=== PATIENT | female | born 1985 | race American Indian/Alaskan Native ===

== ENCOUNTER 2019-12-18 12:54 | Emergency (ER) | payer MEDICAID ==
[2019-12-18 13:03] VITALS: BP 142/80
--- NOTE | 2019-12-18 13:49 | Emergency Department Report ---
Chief Complaint: Earache Stated Complaint: LFT EAR PAIN Time Seen by Provider: 12/18/19 13:30 - HPI History of Present Illness: 34-year-old obese -[place] female presents to the emergency room for left ear pain and reports she thinks she has a rash from her blood transfusion. Patient also complains of a bump on the opening of her nose. - Exam Vital Signs: Vital Signs 12/18/19 12:57 Temperature 98 F Pulse Rate 99 H Respiratory 18 Rate Blood Pressure 142/80 O2 Sat by Pulse 100 Oximetry Physical Exam: Patient is alert and oriented x3 morbid obese no acute distress Left ear tragus tenderness pinna tenderness mild discharge from the external canal, nares pin size bump that is nonerythematous nonedematous no discharge appreciated non-crusty no excoriation MSE screening note: Focused history and physical exam performed. Due to findings the following was ordered: 34-year-old obese -[place] female presents to the emergency room for left ear pain and reports she thinks she has a rash from her blood transfusion. Patient also complains of a bump on the opening of her nose. Discussed the patient I will treat her for a left otitis externa. Discussed the patient that the bump on her nose does not require any antibiotics orally. Patient became irate and states that she is going to leave and going to [place]. Patient refuses treatment for her otitis externa. ED Disposition for MSE Disposition: Z-07 ELOPED Is pt being admited?: No Does the pt Need Aspirin: No Condition: Stable
== END 2019-12-18 13:42 | disposition left against medical advice (07) ==
LOC: ED 12:54
DX: H60.8X1 Other otitis externa, right ear (principal)
CPT/HCPCS: 99281

== ENCOUNTER 2019-12-23 15:02 | Emergency (ER) | payer MEDICAID, MEDICARE ==
--- NOTE | 2019-12-23 16:03 | Emergency Department Report ---
ED Abdominal Pain HPI - General Chief Complaint: Abdominal Pain Stated Complaint: LOWER ABD PAIN Time Seen by Provider: 12/23/19 16:00 Source: patient Mode of arrival: Ambulatory Limitations: No Limitations - History of Present Illness Initial Comments: 34-year-old obese female presents to the emergency room for lower abdominal pain x5 days. Patient denies any dysuria but reports that her urine is dark. Patient reports she still having some light vaginal bleeding from her period. Patient denies any vaginal discharge. Patient reports that her last menstrual period started on 12/06/2019 and ended on 12/15/2019. Patient states she is been taken extra strength Tylenol for her pain. Patient reports she has a past medical history of pulmonary embolism and DVTs and seizure disorder. Last seizure was Thursday of [facility]. Patient states that she is on Trileptal 900 mg twice daily, Eliquis 5 mg twice daily Provera 20 mg p.o. twice daily and Keppra 1500 mg p.o. twice daily. Patient reports that she is followed by [facility]. She has no known drug allergies. Patient was recently seen here last week for a left ear pain and left upset and not treated. Patient states that she was eventually seen by a provider and was told that she had a cyst in her outer ear canal. MD Complaint: abdominal pain Onset/Timin -: days(s) Location: suprapubic Radiation: none Severity scale (0 -10): 8 Quality: stabbing, aching Consistency: constant Improves With: nothing Worsens With: nothing Associated Symptoms: denies other symptoms - Related Data Home Medications Medication Instructions Recorded Confirmed Last Taken Apixaban [Eliquis] 5 mg PO DAILY 12/18/19 12/18/19 Unknown levETIRAcetam [Keppra TAB] 1,500 mg PO BID 12/18/19 12/18/19 Unknown medroxyPROGESTERone ACETATE 10 mg PO DAILY 12/18/19 12/18/19 Unknown [Provera] Previous Rx's Medication Instructions Recorded Last Taken Type traMADoL [Ultram 50 MG tab] 50 mg PO Q6HR PRN #12 tablet 12/23/19 Unknown Rx Allergies Allergy/AdvReac Type Severity Reaction Status Date / Time No Known Allergies Allergy Unverified 12/18/19 13:03 ED Review of Systems ROS: Stated complaint: LOWER ABD PAIN Other details as noted in HPI ED Past Medical Hx - Past Medical History Previous Medical History?: Yes Hx Deep Vein Thrombosis: Yes Hx Seizures: Yes Additional medical history: fibroids - Surgical History Past Surgical History?: Yes Additional Surgical History: fibroids, blood transfusions - Social History Smoking Status: Never Smoker Substance Use Type: None - Medications Home Medications: Home Medications Medication Instructions Recorded Confirmed Last Taken Type Apixaban [Eliquis] 5 mg PO DAILY 12/18/19 12/18/19 Unknown History levETIRAcetam [Keppra TAB] 1,500 mg PO BID 12/18/19 12/18/19 Unknown History medroxyPROGESTERone ACETATE 10 mg PO DAILY 12/18/19 12/18/19 Unknown History [Provera] traMADoL [Ultram 50 MG tab] 50 mg PO Q6HR PRN #12 tablet 12/23/19 Unknown Rx ED Physical Exam - General Limitations: No Limitations ED Course Vital Signs 12/23/19 15:10 Temperature 98.4 F Pulse Rate 101 H Respiratory 18 Rate Blood Pressure 137/72 [Right] O2 Sat by Pulse 99 Oximetry ED Medical Decision Making - Radiology Data Radiology results: report reviewed Print Report Referring Physician:JACQUELINE BUITRAGOPatient Name:DELIA MORRISPatient ID:[id number] of :[id number]:Femal eAccession:[id number] Date:[id number] Status:Finalized Findings [facility] [address] [place] [address] Ultrasound Report Signed Patient: DELIA MORRIS MR# : [id number] : 1985 Acct:[id number] Age/Sex: 34 / F ADM Date: 12/23/19 Loc: ED Attending Dr: Ordering Physician: ROSALINA CORDOVA Date of Service: 12/23/19 Procedure(s): US transvaginal Accession Number(s): [id number] cc: ROSALINA CORDOVA ULTRASOUND PELVIS INDICATION: Pelvic pain. TECHNIQUE: Transvaginal. Duplex Color Doppler used: Yes. COMPARISON: Transabdominal ultrasound performed same time. FINDINGS: Uterus: Present. Heterogeneous. Size: 19.6 x 13.3 x 15.1 cm cm. Endometrial complex: Thickened measuring 15 mm containing IUD. Mass lesions: None. Additional findings: None. Right Ovary -- Normal. Blood flow: Normal. Cyst or mass: None. Left Ovary-- Normal. Blood flow: Normal. Cyst or mass: None. Urinary Bladder: Normal. Free Fluid: None. Additional Findings: None. IMPRESSION: 1. Enlarged heterogeneous uterus likely secondary to leiomyomatous appearance. No discrete fibroids measured or visualized. 2. Thickened endometrial stripe measuring 15 mm containing IUD Signer Name: Darion Slaughter MD Signed: 12/23/2019 6:47 PM Workstation Name: [id number] Transcribed By: TL Dictated By: Darion Slaughter MD Electronically Authenticated By: Darion Slaughter MD Signed Date/Time: 12/23/191846 DD/ 43 TD/TT: - Medical Decision Making 34-year-old obese female presents to the emergency room for lower abdominal pain x5 days. Patient denies any dysuria but reports that her urine is dark. Patient reports she still having some light vaginal bleeding from her period. Patient denies any vaginal discharge. Patient reports that her last menstrual period started on 12/06/2019 and ended on 12/15/2019. Patient states she is been taken extra strength Tylenol for her pain. Patient reports she has a past medical history of pulmonary embolism and DVTs and seizure disorder. Last seizure was Thursday of [facility]. Patient states that she is on Trileptal 900 mg twice daily, Eliquis 5 mg twice daily Provera 20 mg p.o. twice daily and Keppra 1500 mg p.o. twice daily. Patient reports that she is followed by [facility]. She has no known drug allergies. Patient was recently seen here last week for a left ear pain and left upset and not treated. Patient states that she was eventually seen by a provider and was told that she had a cyst in her outer ear canal. Ultrasound of pelvic shows the 1. Enlarged heterogeneous uterus likely secondary to leiomyomatous appearance. No discrete fibroids measured or visualized. 2. Thickened endometrial stripe measuring 15 mm containing IUD Urinalysis is negative blood work is stable. Recommend to take Tylenol extra strength 2 tablets p.o. every 6 hours as needed and to follow-up with the [facility]. Critical care attestation.: If time is entered above; I have spent that time in minutes in the direct care of this critically ill patient, excluding procedure time. ED Disposition Clinical Impression: Leiomyoma, Pelvic pain Disposition: TO HOME OR SELFCARE Is pt being admited?: No Does the pt Need Aspirin: No Condition: Stable Instructions: Abdominal Pain (ED) Additional Instructions: Recommend to take Tylenol extra strength 2 tabs every 6 hours as needed for pain and to follow-up with the [facility]. Urinalysis is negative for any infection, blood work is stable. Prescriptions: traMADoL [Ultram 50 MG tab] 50 mg PO Q6HR PRN #12 tablet PRN Reason: Pain Referrals: [facility]IMARY [facility] [Primary Care Provider] - 3-5 Days [facility] [Provider Group] - 3-5 Days [facility] [Provider Group] - 3-5 Days
[2019-12-23 16:18] LABS: Bilirubin,Urine NEG (Negative); Blood,Urine LG (Negative); Color,Urine Yellow (Yellow); Mucus,Urine FEW /HPF; Urobilinogen,Urine < 2.0 mg/dL (<2.0)
[2019-12-23 16:23] LABS: HCG Qualitative,Urine Negative (Negative)
[2019-12-23] MEDS ORDERED: traMADol 50 MG TAB PO ONE (16:46)
--- NOTE | 2019-12-23 18:44 | Ultrasound Report ---
ULTRASOUND PELVIS INDICATION: Pelvic pain. TECHNIQUE: Transabdominal and Transvaginal. Duplex Color Doppler used: No. COMPARISON: None available FINDINGS: Uterus: Present. Size: 19.6 x 13.3 x 15.1 cm. Endometrial complex: Contains IUD. measuring 15 mm. Mass lesions: Several ill-defined uterine leiomyomas, largest of which measures 8.6 cm Additional findings: None. Right Ovary -- Normal. Blood flow: Normal. Cyst or mass: None. Left Ovary-- Normal. Blood flow: Normal. Cyst or mass: 4.0 x 3.7 x 3.3 cm left ovarian cyst. Urinary Bladder: Normal. Free Fluid: None. Additional Findings: None. IMPRESSION: 1. Enlarged heterogeneous leiomyomatous 2. IUD with thickened endometrial stripe measuring 15 mm 3. 4.0 cm left ovarian locular cyst. Signer Name: Darion Slaughter MD Signed: 12/23/2019 6:40 PM Workstation Name: [id number]
--- NOTE | 2019-12-23 18:51 | Ultrasound Report ---
ULTRASOUND PELVIS INDICATION: Pelvic pain. TECHNIQUE: Transvaginal. Duplex Color Doppler used: Yes. COMPARISON: Transabdominal ultrasound performed same time. FINDINGS: Uterus: Present. Heterogeneous. Size: 19.6 x 13.3 x 15.1 cm cm. Endometrial complex: Thickened measuring 15 mm containing IUD. Mass lesions: None. Additional findings: None. Right Ovary -- Normal. Blood flow: Normal. Cyst or mass: None. Left Ovary-- Normal. Blood flow: Normal. Cyst or mass: None. Urinary Bladder: Normal. Free Fluid: None. Additional Findings: None. IMPRESSION: 1. Enlarged heterogeneous uterus likely secondary to leiomyomatous appearance. No discrete fibroids m easured or visualized. 2. Thickened endometrial stripe measuring 15 mm containing IUD Signer Name: Darion Slaughter MD Signed: 12/23/2019 6:47 PM Workstation Name: [id number]
[2019-12-23 19:42] VITALS: BP 141/82
== END 2019-12-23 19:25 | disposition home or self-care (01) ==
LOC: ED 15:02
DX: D21.9 Benign neoplasm of connective and other soft tissue, unspecified (principal); R10.2 Pelvic and perineal pain; Z79.899 Other long term (current) drug therapy; Z98.890 Other specified postprocedural states; Z86.69 Personal history of other diseases of the nervous system and sense organs
CPT/HCPCS: 76830; 76856; 81001; 81025

== ENCOUNTER 2020-05-30 01:50 | Emergency (ER) | payer MEDICARE ==
[2020-05-30 04:08] LABS: Alanine Aminotransferase 62 units/L (7-56); Albumin 3.9 g/dL (3.9-5); Blood Urea Nitrogen 12 mg/dL (7-17); Calcium 8.8 mg/dL (8.4-10.2); Hemolysis Index 5
[2020-05-30 04:10] LABS: BUN/Creatinine Ratio 20
[2020-05-30 04:13] LABS: Basophils # (Auto) 0.1 K/mm3 (0.0-0.1); Basophils % (Auto) 0.4 % (0.0-1.8); Eosinophils % (Auto) 0.1 % (0.0-4.3); Hematocrit 39.1 % (30.3-42.9); Hemoglobin 12.7 gm/dl (10.1-14.3); Lymphocytes # (Auto) 1.1 K/mm3 (1.2-5.4); Lymphocytes % (Auto) 7.5 % (13.4-35.0); Mean Corpuscular HGB Conc 33 % (30-34); Mean Corpuscular Volume 87 fl (79-97); Monocytes # (Auto) 0.5 K/mm3 (0.0-0.8); Monocytes % (Auto) 3.3 % (0.0-7.3); Platelet Count 295 K/mm3 (140-440); Red Blood Count 4.48 M/mm3 (3.65-5.03); Red Cell Distribution Width 16.3 % (13.2-15.2)
[2020-05-30 06:09] LABS: Bilirubin,Urine NEG (Negative); Blood,Urine LG (Negative); Color,Urine Red (Yellow); Mucus,Urine 1+ /HPF; Sperm,Urine 1+ /HPF (NP); Urobilinogen,Urine < 2.0 mg/dL (<2.0)
[2020-05-30 06:16] LABS: RBC,Urine > 182.0 /HPF (0.0-6.0)
[2020-05-30] MEDS ORDERED: MORPHINE 4 MG/1 ML INJ IV ONE (08:35)
[2020-05-30] MEDS ORDERED: SODIUM CHLORIDE 0.9% 1000 ML 1,000 ML IV ONE (08:35)
[2020-05-30] MEDS ORDERED: ONDANSETRON 4 MG/2 ML INJ IV ONE (08:35)
[2020-05-30] MEDS ORDERED: cefTRIAXone/NS 1 GM/50 ML 1 GM/50 ML BAG IV ONE (08:35)
[2020-05-30] MEDS ORDERED: POTASSIUM CHLORIDE ER 20 MEQ TAB PO ONE (09:06)
--- NOTE | 2020-05-30 09:26 | Emergency Department Report ---
ED Abdominal Pain HPI - General Chief Complaint: Abdominal Pain Stated Complaint: ABD PAINS / SEIZURE Time Seen by Provider: 05/30/20 08:24 Source: patient Mode of arrival: Ambulatory Limitations: No Limitations - History of Present Illness Initial Comments: This is a 35-year-old female nontoxic, well nourished in appearance, no acute signs of distress presents to the ED with c/o of nausea and vomiting and abdominal pain several days. Patient describes vomiting as food content and yellow gastric acid. Patient describes abdominal pain as cramping and aching with level of 8/10 diffuse. Denies any vaginal discharge. Patient denies chest pain, short of breath, fever, hemoptysis, blood in stool, chills, headache, stiff neck, numbness or tingling. Patient denies any diarrhea or constipation. Denies any blood in stool. Patient denies any recent travels. Patient denies any allergies. MD Complaint: abdominal pain -: days(s) Location: diffuse Radiation: none Migration to: no migration Severity: mild Severity scale (0 -10): 8 Quality: cramping, aching Consistency: constant Improves With: nothing Worsens With: nothing Associated Symptoms: nausea, vomiting. denies: diarrhea, fever, chills, constipation, dysuria, hematemesis, hematochezia, melena, hematuria, anorexia, syncope - Related Data Home Medications Medication Instructions Recorded Confirmed Last Taken Apixaban [Eliquis] 5 mg PO DAILY 12/18/19 05/10/20 Unknown medroxyPROGESTERone ACETATE 10 mg PO DAILY 12/18/19 05/10/20 Unknown [Provera] OXcarbazepine 1,350 mg PO DAILY 05/10/20 05/10/20 Unknown Previous Rx's Medication Instructions Recorded Last Taken Type traMADoL [Ultram 50 MG tab] 50 mg PO Q6HR PRN #12 tablet 12/23/19 Unknown Rx Ibuprofen [Motrin 800 MG tab] 800 mg PO Q8HR PRN #20 tablet 01/30/20 Unknown Rx medroxyPROGESTERone ACETATE 10 mg PO QDAY #10 tablet 01/31/20 Unknown Rx [Provera] traMADoL [Ultram 50 MG tab] 50 mg PO Q6HR PRN #14 tablet 03/24/20 Unknown Rx Butalb/Acetamin/Caff 50-325-40 1 - 2 tab PO Q8HR PRN #10 tablet 05/10/20 Unknown Rx [Fioricet 50-325-40] OXcarbazepine [Trileptal] 600 mg PO BID #30 tablet 05/10/20 Unknown Rx levETIRAcetam [Keppra TAB] 1,500 mg PO BID #90 05/10/20 Unknown Rx Ondansetron [Zofran Odt] 4 mg PO Q8HR PRN #12 tab.rapdis 05/30/20 Unknown Rx cephALEXin [Keflex] 500 mg PO Q8HR #21 cap 05/30/20 Unknown Rx Allergies Allergy/AdvReac Type Severity Reaction Status Date / Time No Known Allergies Allergy Verified 01/30/20 19:26 ED Review of Systems ROS: Stated complaint: ABD PAINS / SEIZURE Other details as noted in HPI Constitutional: denies: chills, fever Eyes: denies: eye pain, eye discharge, vision change ENT: denies: ear pain, throat pain Respiratory: denies: cough, shortness of breath, wheezing Cardiovascular: denies: chest pain, palpitations Endocrine: no symptoms reported Gastrointestinal: abdominal pain, nausea, vomiting. denies: diarrhea, cons tipation, hematemesis, melena, hematochezia Genitourinary: denies: urgency, dysuria, discharge Musculoskeletal: denies: back pain, joint swelling, arthralgia Skin: denies: rash, lesions Neurological: denies: headache, weakness, paresthesias Psychiatric: denies: anxiety, depression Hematological/Lymphatic: denies: easy bleeding, easy bruising ED Past Medical Hx - Past Medical History Previous Medical History?: Yes Hx Deep Vein Thrombosis: Yes Hx Seizures: Yes Additional medical history: fibroids, PE, endometriosis. anemia - Surgical History Past Surgical History?: Yes Additional Surgical History: fibroids, blood transfusions - Social History Smoking Status: Never Smoker Substance Use Type: None - Medications Home Medications: Home Medications Medication Instructions Recorded Confirmed Last Taken Type Apixaban [Eliquis] 5 mg PO DAILY 12/18/19 05/10/20 Unknown History medroxyPROGESTERone ACETATE 10 mg PO DAILY 12/18/19 05/10/20 Unknown History [Provera] traMADoL [Ultram 50 MG tab] 50 mg PO Q6HR PRN #12 tablet 12/23/19 05/10/20 Unknown Rx Ibuprofen [Motrin 800 MG tab] 800 mg PO Q8HR PRN #20 tablet 01/30/20 05/10/20 Unknown Rx medroxyPROGESTERone ACETATE 10 mg PO QDAY #10 tablet 01/31/20 05/10/20 Unknown Rx [Provera] traMADoL [Ultram 50 MG tab] 50 mg PO Q6HR PRN #14 tablet 03/24/20 05/10/20 Unknown Rx Butalb/Acetamin/Caff 50-325-40 1 - 2 tab PO Q8HR PRN #10 tablet 05/10/20 Unknown Rx [Fioricet 50-325-40] OXcarbazepine 1,350 mg PO DAILY 05/10/20 05/10/20 Unknown History OXcarbazepine [Trileptal] 600 mg PO BID #30 tablet 05/10/20 Unknown Rx levETIRAcetam [Keppra TAB] 1,500 mg PO BID #90 05/10/20 Unknown Rx Ondansetron [Zofran Odt] 4 mg PO Q8HR PRN #12 tab.rapdis 05/30/20 Unknown Rx cephALEXin [Keflex] 500 mg PO Q8HR #21 cap 05/30/20 Unknown Rx ED Physical Exam - General Limitations: No Limitations General appearance: alert, in no apparent distress - Head Head exam: Present: atraumatic, normocephalic - Eye Eye exam: Present: normal appearance - Neck Neck exam: Present: normal inspection, full ROM. Absent: tenderness, meningismus, lymphadenopathy - Respiratory Respiratory exam: Present: normal lung sounds bilaterally. Absent: respiratory distress, wheezes, rales, rhonchi, stridor, chest wall tenderness, accessory muscle use, decreased breath sounds, prolonged expiratory - Cardiovascular Cardiovascular Exam: Present: regular rate, normal rhythm, normal heart sounds. Absent: irregular rhythm, systolic murmur, diastolic murmur, rubs, gallop - GI/Abdominal GI/Abdominal exam: Present: soft, tenderness (diffuse), normal bowel sounds. Absent: distended, guarding, rebound, rigid, diminished bowel sounds - Extremities Exam Extremities exam: Present: normal inspection, full ROM - Back Exam Back exam: Present: normal inspection, full ROM. Absent: tenderness, CVA tenderness (R), CVA tenderness (L), muscle spasm, paraspinal tenderness, rash n oted - Neurological Exam Neurological exam: Present: alert, oriented X3, normal gait - Psychiatric Psychiatric exam: Present: normal affect, normal mood - Skin Skin exam: Present: warm, dry, intact, normal color. Absent: rash ED Course Vital Signs 05/30/20 05/30/20 05/30/20 02:32 07:33 09:50 Temperature 97.6 F 98.0 F Pulse Rate 103 H 108 H Respiratory 18 18 18 Rate Blood Pressure 150/108 Blood Pressure 127/82 [Right] O2 Sat by Pulse 98 99 Oximetry - Reevaluation(s) Reevaluation #1: 05/30/20 09:26 Patient is speaking in full sentences with no signs of distress noted. ED Medical Decision Making - Lab Data Result diagrams: 05/30/20 02:49 05/30/20 02:49 Lab Results 05/30/20 05/30/20 05/30/20 Range/Units 02:49 02:49 02:49 WBC 14.7 H (4.5-11.0) K/mm3 RBC 4.48 (3.65-5.03) M/mm3 Hgb 12.7 (10.1-14.3) gm/dl Hct 39.1 (30.3-42.9) % MCV 87 (79-97) fl MCH 28 (28-32) pg MCHC 33 (30-34) % RDW 16.3 H (13.2-15.2) % Plt Count 295 (140-440) K/mm3 Lymph % (Auto) 7.5 L (13.4-35.0) % [place] % (Auto) 3.3 (0.0-7.3) % Eos % (Auto) 0.1 (0.0-4.3) % Baso % (Auto) 0.4 (0.0-1.8) % Lymph # (Auto) 1.1 L (1.2-5.4) K/mm3 [place] # (Auto) 0.5 (0.0-0.8) K/mm3 Eos # (Auto) 0.0 (0.0-0.4) K/mm3 Baso # (Auto) 0.1 (0.0-0.1) K/mm3 Seg Neutrophils % 88.7 H (40.0-70.0) % Seg Neutrophils # 13.0 H (1.8-7.7) K/mm3 Sodium 137 (137-145) mmol/L Potassium 3.4 L (3.6-5.0) mmol/L Chloride 101.5 (98-107) mmol/L Carbon Dioxide 20 L (22-30) mmol/L Anion Gap 19 mmol/L BUN 12 (7-17) mg/dL Creatinine 0.6 (0.6-1.2) mg/dL Estimated GFR > 60 ml/min BUN/Creatinine Ratio 20 % Glucose 111 H (65-100) mg/dL Calcium 8.8 (8.4-10.2) mg/dL Total Bilirubin 0.50 (0.1-1.2) mg/dL AST 55 H (5-40) units/L ALT 62 H (7-56) units/L Alkaline Phosphatase 111 (35-129) units/L Total Protein 7.9 (6.3-8.2) g/dL Albumin 3.9 (3.9-5) g/dL Albumin/Globulin Ratio 1.0 % Lipase 9 L (13-60) units/L HCG, Qual Negative (Negative) Urine Color (Yellow) Urine Turbidity (Clear) Urine pH (5.0-7.0) Ur Specific [place] (1.003-1.030) Urine Protein (Negative) mg/dL Urine Glucose (UA) (Negative) mg/dL Urine Ketones (Negative) mg/dL Urine Blood (Negative) Urine Nitrite (Negative) Urine Bilirubin (Negative) Urine Urobilinogen (<2.0) mg/dL Ur Leukocyte Esterase (Negative) Urine WBC (Auto) (0.0-6.0) /HPF Urine RBC (Auto) (0.0-6.0) /HPF U Epithel Cells (Auto) (0-13.0) /HPF Urine Mucus /HPF Urine Sperm (FORGE HEATER) /HPF 05/30/20 Range/Units Unknown WBC (4.5-11.0) K/mm3 RBC (3.65-5.03) M/mm3 Hgb (10.1-14.3) gm/dl Hct (30.3-42.9) % MCV (79-97) fl MCH (28-32) pg MCHC (30-34) % RDW (13.2-15.2) % Plt Count (140-440) K/mm3 Lymph % (Auto) (13.4-35.0) % [place] % (Auto) (0.0-7.3) % Eos % (Auto) (0.0-4.3) % Baso % (Auto) (0.0-1.8) % Lymph # (Auto) (1.2-5.4) K/mm3 [place] # (Auto) (0.0-0.8) K/mm3 Eos # (Auto) (0.0-0.4) K/mm3 Baso # (Auto) (0.0-0.1) K/mm3 Seg Neutrophils % (40.0-70.0) % Seg Neutrophils # (1.8-7.7) K/mm3 Sodium (137-145) mmol/L Potassium (3.6-5.0) mmol/L Chloride (98-107) mmol/L Carbon Dioxide (22-30) mmol/L Anion Gap mmol/L BUN (7-17) mg/dL Creatinine (0.6-1.2) mg/dL Estimated GFR ml/min BUN/Creatinine Ratio % Glucose (65-100) mg/dL Calcium (8.4-10.2) mg/dL Total Bilirubin (0.1-1.2) mg/dL AST (5-40) units/L ALT (7-56) units/L Alkaline Phosphatase (35-129) units/L Total Protein (6.3-8.2) g/dL Albumin (3.9-5) g/dL Albumin/Globulin Ratio % Lipase (13-60) units/L HCG, Qual (Negative) Urine Color Red (Yellow) Urine Turbidity Slightly-cloudy (Clear) Urine pH 5.0 (5.0-7.0) Ur Specific [place] 1.046 H (1.003-1.030) Urine Protein 100 mg/dl (Negative) mg/dL Urine Glucose (UA) Neg (Negative) mg/dL Urine Ketones Tr (Negative) mg/dL Urine Blood Lg (Negative) Urine Nitrite Neg (Negative) Urine Bilirubin Neg (Negative) Urine Urobilinogen < 2.0 (<2.0) mg/dL Ur Leukocyte Esterase Lg (Negative) Urine WBC (Auto) 156.0 H (0.0-6.0) /HPF Urine RBC (Auto) > 182.0 (0.0-6.0) /HPF U Epithel Cells (Auto) 1.0 (0-13.0) /HPF Urine Mucus 1+ /HPF Urine Sperm 1+ (FORGE HEATER) /HPF - Radiology Data Referring Physician: KAVITHA ECHAVARRIA Patient Name: DELIA MORRIS Date of : 1985 Sex: Female Report Date: 2020-05-30 Report Status: Finalized [facility] [address] [id number] Cat Scan Report Signed Patient: DELIA MORRIS MR# : [id number] : 1985 Acct:[id number] Age/Sex: 35 / F ADM Date: 05/30/20 Loc: ED Attending Dr: Ordering Physician: KAVITHA ECHAVARRIA NP Date of Service: 05/30/20 Procedure(s): CT abdomen pelvis w con Accession Number(s): [id number] cc: KAVITHA ECHAVARRIA NP CT abdomen pelvis w con INDICATION: abd pain w/ n/v. COMPARISON: ultr asound pelvis from January 29 and December 19 [id number] TECHNIQUE: Abdominal and pelvic CT exam performed. All CT scans at this location are performed using CT dose reduction for ALARA by means of automated exposure control. FINDINGS: CT ABDOMEN and PELVIS: Lung Bases: No significant abnormality. Liver: A couple of tiny subcentimeter hypoattenuating lesions which are too small to characterize but likely represent cysts. Biliary: The bladder is dilated. No stones, gallbladder wall thickening, or pericholecystic fluid. Spleen: No significant abnormality. Pancreas: No significant abnormality. Adrenals: No significant abnormality. Kidneys: No significant abnormality. Lymphatics: No lymphadenopat hy. Vasculature: No significant abnormality. Bowel/Peritoneum: No significant abnormality. Normal appendix. Pelvis: The uterus is significantly enlarged and heterogeneous measuring approximately 19 cm in craniocaudal dimension which is likely related to a fundal fibroid 1 seen on sagittal image 93 of series 602. Small quantity of fluid in the rectouterine pouch. Osseous Structures: No aggressive osseous lesion. Additional Findings: None IMPRESSION: 1. Similar to prior ultrasounds, the uterus is heterogeneous and significantly enlarged with a suspected large uterine fundal fibroid measuring approximately 19cm. Gynecological consultation is recommended. 2. No acute abnormality. Signer Name: Wes Olivares MD Signed: 05/30/2020 10:36 AM Workstation Name: [id number] Transcribed By: CS Dictated By: Wes Olivares MD Electronically Authenticated By: Wes Olivares MD Signed Date/Time: 05/30/20 1036 DD/ 1031 TD/TT: - Medical Decision Making This is a 35-year-old female that presents with uterine fibroid. Patient is stable and was examined by me. Negative signs of symptoms of appendicitis. Labs obtained. UA obtained. CT of abdomen obtained and dictated by the radiologist. Patient is notified of the report with no questions noted by the patient. Vital signs are stable prior to discharge. Patient received medical treatment in the ED which patient stated symptoms has resovled and subsided. Was instructed note to operate any machinery due to possible drowsiness and stated someone will drive the patient home. A by mouth challenge has been obtained and patient tolerated well with no nausea vomiting. Patient was also instructed to Follow- up with a primary care doctor in 3-5 days or if symptoms worsen and continue return to emergency room as soon as possible. At time of discharge, the patient does not seem toxic or ill in appearance. No acute signs of distress noted. Patient agrees to discharge treatment plan of care. No further questions noted by the patient. Critical care attestation.: If time is entered above; I have spent that time in minutes in the direct care of this critically ill patient, excluding procedure time. ED Disposition Clinical Impression: Abdominal pain Qualifiers: Abdominal location: generalized Qualified Code(s): R10.84 - Generalized abdominal pain Nausea & vomiting Qualifiers: Vomiting type: unspecified Vomiting Intractability: non-intractable Qualified Code(s): R11.2 - Nausea with vomiting, unspecified Uterine fibroid Qualifiers: Uterine leiomyoma location: unspecified location Qualified Code(s): D25.9 - Leiomyoma of uterus, unspecified UTI (urinary tract infection) Qualifiers: Urinary tract infection type: acute cystitis Hematuria presence: without hematuria Qualified Code(s): N30.00 - Acute cystitis without hematuria Disposition: - TO HOME OR SELFCARE Is pt being admited?: No Does the pt Need Aspirin: No Condition: Stable Instructions: Abdominal Pain (ED), Uterine Fibroids (ED), Urinary Tract Infection in Women (ED) Additional Instructions: Follow-up with a primary care and D[facility]AL EQUIPMENT TECHNICIAN doctor in 3-5 days or if symptoms wo rsen and continue return to emergency room as soon as possible. Prescriptions: cephALEXin [Keflex] 500 mg PO Q8HR #21 cap Ondansetron [Zofran Odt] 4 mg PO Q8HR PRN #12 tab.rapdis PRN Reason: Nausea Referrals: PRIMARY MD DANA [Primary Care Provider] - 3-5 Days CARL LOVELL MD [Staff Physician] - 3-5 Days [facility] [Provider Group] - 3-5 Days Forms: Work/School Release Form(ED)
--- NOTE | 2020-05-30 10:41 | Cat Scan Report ---
CT abdomen pelvis w con INDICATION: abd pain w/ n/v. COMPARISON: ultrasound pelvis from January 29 thousand 20 and December 18 4020 TECHNIQUE: Abdominal and pelvic CT exam performed. All CT scans at this location are performed using CT dose reduction for ALARA by means of automated exposure control. FINDINGS: CT ABDOMEN and PELVIS: Lung Bases: No significant abnormality. Liver: A couple of tiny subcentimeter hypoattenuating lesions which are too small to characterize but likely represent cysts. Biliary: The bladder is dilated. No stones, gallbladder wall thickening, or pericholecystic fluid. Spleen: No significant abnormality. Pancreas: No significant abnormality. Adrenals: No significant abnormality. Kidneys: No significant abnormality. Lymphatics: No lymphadenopathy. Vasculature: No significant abnormality. Bowel/Peritoneum: No significant abnormality. Normal appendix. Pelvis: The uterus is significantly enlarged and heterogeneous measuring approximately 19 cm in crani ocaudal dimension which is likely related to a fundal fibroid 1 seen on sagittal image 93 of series 6 02. Small quantity of fluid in the rectouterine pouch. Osseous Structures: No aggressive osseous lesion. Additional Findings: None IMPRESSION: 1. Similar to prior ultrasounds, the uterus is heterogeneous and significantly enlarged with a suspec irvin large uterine fundal fibroid measuring approximately 19cm. Gynecological consultation is recommen ded. 2. No acute abnormality. Signer Name: Wes Olivares MD Signed: 05/30/2020 10:36 AM Workstation Name: [id number]
[2020-05-30] MEDS ORDERED: KETOROLAC 30 MG/1 ML INJ IV ONE (12:43)
[2020-05-30 13:27] VITALS: BP 130/84
== END 2020-05-30 13:26 | disposition home or self-care (01) ==
LOC: ED 01:50
DX: D25.9 Leiomyoma of uterus, unspecified (principal); N39.0 Urinary tract infection, site not specified; R10.84 Generalized abdominal pain; R11.2 Nausea with vomiting, unspecified; R56.9 Unspecified convulsions; Z86.718 Personal history of other venous thrombosis and embolism; Z98.890 Other specified postprocedural states; Z79.1 Long term (current) use of non-steroidal anti-inflammatories (NSAID); Z79.899 Other long term (current) drug therapy
CPT/HCPCS: 36415; 74177; 80053; 81001; 83690; 84703; 85025; 96361; 96365; 96375; 99284; J0696; J1885; J2270; J2405; J7030; Q9967

== ENCOUNTER 2021-02-09 11:34 | Emergency (ER) | payer MEDICARE ==
[2021-02-09 13:03] VITALS: BP 129/75
[2021-02-09] MEDS ORDERED: oxyCODONE 5 MG TAB PO ONE (14:01)
--- NOTE | 2021-02-09 14:02 | Emergency Department Report ---
ED Lower Extremity HPI - General Chief Complaint: Extremity Injury, Lower Stated Complaint: RT KNEE Time Seen by Provider: 02/09/21 13:33 Source: patient, RN notes reviewed Mode of arrival: Ambulatory Limitations: No Limitations - History of Present Illness Initial Comments: The patient was evaluated in the emergency department for symptoms described in the history of present illness. He/she was evaluated in the context of the global COVID-19 pandemic, which necessitated consideration that the patient might be at risk for infection with the virus that causes COVID-19. Institutional protocols and algorithms that pertain to the evaluation of patients at risk for COVID-19 are in a state of rapid change based on information released by regulatory bodies including the CDC and federal and state organizations. These policies and algorithms were followed during the patient's care in the emergency department. Please note that these policies, procedures and recommendations changed on a rapid basis. During the entire history and physical examination, I am chaperoned by nurse Lia Thomas The patient is a 35-year-old female. She is not known to myself previously. She has a history of morbid obesity, with a body mass index of 55, pulmonary embolism, maintained on Eliquis, and seizure disorder, compliant with Keppra, and Trileptal. The patient presents to the ER today with a complaint of subacute traumatic right knee pain. Patient reports that she tripped and fell and hit her knee a few weeks ago. She has persistent sharp throbbing right-sided knee pain, which increases with palpation and decreases with rest. She cannot take Motrin or ibuprofen secondary to her being on systemic anticoagulation. She has been taki ng acetaminophen. She indicates that she has been limiting acetaminophen to less than 3 g per 24 hours. She currently denies headache, neck pain, chest pain, abdominal pain, shortness of breath, and the possibility of . She reports that she has not delivered or given within the past 6 weeks. She endorses compliance with her seizure medications. She does report on review systems that she had an absence seizure yesterday, which is typical for her, associated with a loss of perception of time, without headache, neck pain, chest pain, abdominal pain or shortness of breath. Patient reports that she does not drive or operate motor vehicles. The patient reports that she is following up as an outpatient at [facility] for her seizures. Patient patient reports that she gets "an event", a few times a month. However, her primary complaint is right-sided knee pain. She reports she is going to follow-up with an orthopedist in March. Complaint: knee injury -: week(s) Injury: Knee: Right Type of Injury: blunt Severity: mild Improves With: rest Worsens With: movement, palpation Context: fall, direct blow Associated Symptoms: swelling. denies: numbness, tingling Treatments Prior to Arrival: other (Acetaminophen) - Related Data Home Medications Medication Instructions Recorded Confirmed Last Taken Apixaban [Eliquis] 5 mg PO DAILY 12/18/19 05/10/20 Unknown medroxyPROGESTERone ACETATE 10 mg PO DAILY 12/18/19 05/10/20 Unknown [Provera] OXcarbazepine 1,350 mg PO DAILY 05/10/20 05/10/20 Unknown Previous Rx's Medication Instructions Recorded Last Taken Type traMADoL [Ultram 50 MG tab] 50 mg PO Q6HR PRN #12 tablet 12/23/19 Unknown Rx Ibuprofen [Motrin 800 MG tab] 800 mg PO Q8HR PRN #20 tablet 01/30/20 Unknown Rx medroxyPROGESTERone ACETATE 10 mg PO QDAY #10 tablet 01/31/20 Unknown Rx [Provera] traMADoL [Ultram 50 MG tab] 50 mg PO Q6HR PRN #14 tablet 03/24/20 Unknown Rx Butalb/Acetamin/Caff 50-325-40 1 - 2 tab PO Q8HR PRN #10 tablet 05/10/20 Unknown Rx [Fioricet 50-325-40] OXcarbazepine [Trileptal] 600 mg PO BID #30 tablet 05/10/20 Unknown Rx levETIRAcetam [Keppra TAB] 1,500 mg PO BID #90 05/10/20 Unknown Rx Ondansetron [Zofran Odt] 4 mg PO Q8HR PRN #12 tab.rapdis 05/30/20 Unknown Rx cephALEXin [Keflex] 500 mg PO Q8HR #21 cap 05/30/20 Unknown Rx Allergies Allergy/AdvReac Type Severity Reaction Status Date / Time No Known Allergies Allergy Verified 01/30/20 19:26 ED Review of Systems ROS: Stated complaint: RT KNEE Other details as noted in HPI Constitutional: denies: fever Eyes: denies: vision change ENT: denies: epistaxis Respiratory: denies: cough, shortness of breath Cardiovascular: denies: chest pain Gastrointestinal: denies: abdominal pain Musculoskeletal: arthralgia, myalgia Neurological: denies: weakness ED Past Medical Hx - Past Medical History Previous Medical History?: Yes Hx Deep Vein Thrombosis: Yes Hx Seizures: Yes Additional medical history: fibroids, PE, endometriosis. anemia - Surgical History Past Surgical History?: Yes Additional Surgical History: fibroids, blood transfusions - Social History Smoking Status: Never Smoker Substance Use Type: None - Medications Home Medications: Home Medications Medication Instructions Recorded Confirmed Last Taken Type Apixaban [Eliquis] 5 mg PO DAILY 12/18/19 05/10/20 Unknown History medroxyPROGESTERone ACETATE 10 mg PO DAILY 12/18/19 05/10/20 Unknown History [Provera] traMADoL [Ultram 50 MG tab] 50 mg PO Q6HR PRN #12 tablet 12/23/19 05/10/20 Unknown Rx Ibuprofen [Motrin 800 MG tab] 800 mg PO Q8HR PRN #20 tablet 01/30/20 05/10/20 Unknown Rx medroxyPROGESTERone ACETATE 10 mg PO QDAY #10 tablet 01/31/20 05/10/20 Unknown Rx [Provera] traMADoL [Ultram 50 MG tab] 50 mg PO Q6HR PRN #14 tablet 03/24/20 05/10/20 Unknown Rx Butalb/Acetamin/Caff 50-325-40 1 - 2 tab PO Q8HR PRN #10 tablet 05/10/20 Unknown Rx [Fioricet 50-325-40] OXcarbazepine 1,350 mg PO DAILY 05/10/20 05/10/20 Unknown History OXcarbazepine [Trileptal] 600 mg PO BID #30 tablet 05/10/20 Unknown Rx levETIRAcetam [Keppra TAB] 1,500 mg PO BID #90 05/10/20 Unknown Rx Ondansetron [Zofran Odt] 4 mg PO Q8HR PRN #12 tab.rapdis 05/30/20 Unknown Rx cephALEXin [Keflex] 500 mg PO Q8HR #21 cap 05/30/20 Unknown Rx ED Physical Exam - General Limitations: No Limitations General appearance: obese - Head Head exam: Present: atraumatic, normocephalic - Eye Eye exam: Present: normal appearance, EOMI. Absent: nystagmus - ENT ENT exam: Present: normal exam, normal orophraynx, mucous membranes moist, normal external ear exam - Neck Neck exam: Present: normal inspection, full ROM. Absent: tenderness, meningismus - Respiratory Respiratory exam: Present: normal lung sounds bilaterally. Absent: respiratory distress, wheezes, rales, rhonchi, stridor, decreased breath sounds - Cardiovascular Cardiovascular Exam: Present: regular rate, normal rhythm, normal heart sounds. Absent: bradycardia, tachycardia, irregular rhythm, systolic murmur, diastolic murmur, rubs, gallop - GI/Abdominal GI/Abdominal exam: Present: soft. Absent: distended, tenderness, guarding, rebound, rigid, pulsatile mass - Extremities Exam Extremities exam: Present: normal inspection, full ROM, tenderness (There is new tenderness on the medial and lateral right-sided knee. There is no redness, pus or streaking. The patella is nontender.), other (2+ pulses noted in the bilateral upper and lower extremities. There is no palpable cord. negative Homans sign. Muscular compartments are soft. The pelvis is stable.). Absent: calf tenderness - Back Exam Back exam: Present: normal inspection, full ROM. Absent: tenderness, CVA tenderness (R), CVA tenderness (L), paraspinal tenderness, vertebral tenderness - Neurological Exam Neurological exam: Present: alert, oriented X3, normal gait, other (No facial droop. Tongue midline. Extraocular movements intact bilaterally. Facial sensation intact to light touch in V1, V2, V3 distribution bilaterally. 5 and a 5 strength in 4 extremities. Sensation intact to light touch in 4 extremities.). Absent: motor sensory deficit - Psychiatric Psychiatric exam: Present: normal affect, normal mood - Skin Skin exam: Present: warm, dry, intact, normal color. Absent: rash ED Course Vital Signs 02/09/21 12:59 Temperature 98.2 F Pulse Rate 79 Respiratory 18 Rate Blood Pressure 129/75 [Right] O2 Sat by Pulse 99 Oximetry ED Lower Extremity MDM - EKG Data -: EKG Interpreted by Sd EKG shows normal: sinus rhythm Rate: normal - EKG Data When compared to previous EKG there are: previous EKG unavailable 02/09/21 15:25 EKG interpreted at 15: 14 Sinus rhythm, 69 bpm. Normal axis, QTC 563 ms. Incomplete right bundle branch block, motion artifact. Abnormal EKG, not a STEMI. - Radiology Data Radiology results: report reviewed, image reviewed interpreted by me: X-ray of the femur negative for fracture, dislocation. X-ray of the right knee negative for fracture, dislocation. Fluoro Time In Minutes: RIGHT KNEE 4 VIEW(S) INDICATION / CLINICAL INFORMATION: right knee pain COMPARISON: None available. FINDINGS: BONES / JOINT(S): No acute fracture or subluxation. Mild medial tibiofemoral and patellofemoral compartment degenerative change with mild marginal osteophytosis. Small suprapatellar joint effusion. Tiny focus of osseous sclerosis at the posterior tibial metaphysis measuring approximately 2.4 cm without aggressive appearing features. This likely represents benign fibro-osseous lesion such as a fibrous cortical defect/nonossifying fibroma. SOFT TISSUES: No significant abnormality. ADDITIONAL FINDINGS: None. Signer Name: Timbo Hill MD Signed: 02/09/2021 3:00 PM Workstation Name: [id number] Transcribed By: RH Dictated By: TIMBO HILL III Electronically Authenticated By: TIMBO HILL III Signed Date/Time: 02/09/21 1500 DD/ 1459 - Medical Decision Making Differential diagnosis, including but not limited to: Arthritis, sprain, strain, fracture, dislocation, morbid obesity, history of seizure Assessment and plan: 35-year-old female, who was afebrile, with reassuring vital signs, clinically sober, who walks with a steady gait, with a GCS of 15, presenting to the ER today with a complaint of subacute right-sided knee pain. X-ray of the femur, and right knee are negative for acute findings. Counseled patient that she is likely experiencing the natural history of blunt traumatic kidney injury. Have also counseled patient that aggressive weight loss, physical therapy would be of benefit. Have also counseled patient to not drive or operate motor vehicles for the 6 months. The patient is medically suitable to follow-up with an outpatient primary care doctor and/or orthopedist. I did advise the patient that it would be unlikely that an orthopedist would emergently or urgently recommend operative intervention, and that a primary care doctor could in theory prescribe outpatient physical therapy and rehabilitation Also counseled patient that in my opinion narcotic therapy not indicated. Critical care attestation.: If time is entered above; I have spent that time in minutes in the direct care o f this critically ill patient, excluding procedure time. ED Disposition Clinical Impression: BMI 50.0-59.9, adult, Right knee pain, History of seizure Disposition: DC-01 TO HOME OR SELFCARE Is pt being admited?: No Does the pt Need Aspirin: No Condition: Good Instructions: Acute Knee Pain, Adult, Joint Pain, [id number] Additional Instructions: Please continue current outpatient medications. Do not drive or operate motor vehicles for the next 6 months, until cleared to do so by her primary care doctor or neurologist. Follow-up with a primary care doctor or neurologist for history of seizures within the next month. As we discussed, patient was not found to have a fracture or dislocation on her x-rays. Patient is likely experiencing the natural history of blunt traumatic knee injury. Please have your primary care doctor or orthopedist contact the medical records department to obtain copies of radiology reports to follow-up on nonemergent incidental findings. We strongly recommend aggressive weight loss. In addition, patient may benefit from outpatient physical therapy, and exercises as tolerated. Patient may also alternate ice packs and heat packs as needed for areas on the body that are experiencing physical pain. The patient's primary care doctor should be able to prescribe and recommend outpatient physical therapy and rehabilitation. Dr. Melton is a local orthopedic doctor, and [facility] is a local orthopedic clinic. Please return to the emergency room right away with new pain, worsened pain, migration of pain, projectile vomiting, change in mental status, confusion, inability to tolerate liquid feeds, weakness, numbness, or any new, worsened or different symptoms not present on the initial emergency room evaluation. Referrals: TIMBO MELTON MD [Staff Physician] - as needed [facility] [Provider Group] - as needed
--- NOTE | 2021-02-09 15:03 | XRay Report ---
RIGHT FEMUR 2 VIEW(S) INDICATION / CLINICAL INFORMATION: right knee pain COMPARISON: None available. FINDINGS: BONES / JOINT(S): No acute fracture or subluxation. Mild medial tibiofemoral compartment degenerative change with mild marginal osteophytosis. Small suprapatellar joint effusion. Tiny focus of osseous s clerosis at the posterior tibial metaphysis measuring approximately 2.4 cm without aggressive appeari ng features. This likely represents benign fibro-osseous lesion such as a fibrous cortical defect/non ossifying fibroma. SOFT TISSUES: No significant abnormality. ADDITIONAL FINDINGS: None. Signer Name: German Hill MD Signed: 02/09/2021 2:59 PM Workstation Name: [id number]
--- NOTE | 2021-02-09 15:04 | XRay Report ---
RIGHT KNEE 4 VIEW(S) INDICATION / CLINICAL INFORMATION: right knee pain COMPARISON: None available. FINDINGS: BONES / JOINT(S): No acute fracture or subluxation. Mild medial tibiofemoral and patellofemoral preston rtment degenerative change with mild marginal osteophytosis. Small suprapatellar joint effusion. Tiny focus of osseous sclerosis at the posterior tibial metaphysis measuring approximately 2.4 cm without aggressive appearing features. This likely represents benign fibro-osseous lesion such as a fibrous cortical defect/nonossifying fibroma. SOFT TISSUES: No significant abnormality. ADDITIONAL FINDINGS: None. Signer Name: German Hill MD Signed: 02/09/2021 3:00 PM Workstation Name: [id number]
--- NOTE | 2021-02-15 18:28 | Electrocardiograph Report ---
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
== END 2021-02-09 15:36 | disposition home or self-care (01) ==
LOC: ED 11:34
DX: M25.561 Pain in right knee (principal); R56.9 Unspecified convulsions; Z68.43 Body mass index [BMI] 50.0-59.9, adult; Z86.718 Personal history of other venous thrombosis and embolism; Z98.890 Other specified postprocedural states; Z79.1 Long term (current) use of non-steroidal anti-inflammatories (NSAID); Z79.899 Other long term (current) drug therapy
CPT/HCPCS: 93005

== ENCOUNTER 2021-04-30 10:52 | Observation (INO) | payer MEDICARE ==
[2021-04-30 12:30] VITALS: BP 113/65
[2021-04-30 14:44] LABS: Basophils % (Auto) 0.4 % (0.0-1.8); Eosinophils % (Auto) 0.4 % (0.0-4.3); Hematocrit 41.2 % (30.3-42.9); Hemoglobin 13.8 gm/dl (10.1-14.3); Lymphocytes % (Auto) 16.4 % (13.4-35.0); Mean Corpuscular HGB Conc 34 % (30-34); Mean Corpuscular Volume 87 fl (79-97); Monocytes # (Auto) 0.4 K/mm3 (0.0-0.8); Monocytes % (Auto) 5.8 % (0.0-7.3); Platelet Count 260 K/mm3 (140-440); Red Blood Count 4.75 M/mm3 (3.65-5.03); Red Cell Distribution Width 14.5 % (13.2-15.2)
[2021-04-30 14:53] LABS: Alanine Aminotransferase 23 units/L (7-56); Albumin 3.6 g/dL (3.9-5); Blood Urea Nitrogen 7 mg/dL (7-17); Calcium 9.1 mg/dL (8.4-10.2); Hemolysis Index 4
[2021-04-30 15:01] LABS: BUN/Creatinine Ratio 14
--- NOTE | 2021-04-30 15:12 | Event Note ---
ED Screening Note ED Screening Note: Patient is a 36-year-old female presents emergency room complaints of shortness of breath, chest pain, mucus production which she reports is yellow with small specks of blood Patient states that she tested positive for COVID-19 approximately 2 to 3 weeks ago and states that she completed a course of antibiotics and steroids She states that she was not hospitalized at that time She states her shortness of breath has gotten worse Has a past medical history of seizures and PE x2 She is currently on Eliquis and denies any missed doses She is a former smoker Upon ambulating patient her oxygen saturation drops to 88% on room air This initial assessment/diagnostic orders/clinical plan/treatment(s) is/are subject to change based on patients health status, clinical progression and re- assessment by fellow clinical providers in the ED. Further treatment and workup at subsequent clinical providers discretion. Patient/guardian urged not to elope from the ED as their condition may be serious if not clinically assessed and managed. Initial orders include: labs, ekg, xr
--- NOTE | 2021-04-30 15:37 | XRay Report ---
XR chest routine 2V INDICATION / CLINICAL INFORMATION: sob,cough and rales. COMPARISON: 12/07/2008 FINDINGS: SUPPORT DEVICES: None. HEART /PULMONARY VASCULATURE: No significant abnormality. LUNGS / PLEURA: Moderate patchy airspace opacities are present within both lungs. No sizable pleural effusion. No pneumothorax. ADDITIONAL FINDINGS: No significant additional findings. IMPRESSION: Moderate patchy airspace disease throughout the lungs, consistent with pneumonia. Signer Name: Paco Caldwell MD Signed: 04/30/2021 3:32 PM Workstation Name: [id number]
--- NOTE | 2021-04-30 16:05 | Emergency Department Report ---
ED Shortness of Breath HPI - General Chief Complaint: Dyspnea/Respdistress Stated Complaint: POSS COVID 2WKS AGO,COUGH, THROAT FEELS RAW Time Seen by Provider: 04/30/21 15:11 Source: patient Mode of arrival: Ambulatory Limitations: No Limitations - History of Present Illness Initial Comments: Patient is a 36 years old female, morbidly obese, history of seizure and history of pulmonary embolism after surgery. Patient presented to the ER complaining of shortness of breath for the last 2 weeks getting worse recently. Patient stated that she was diagnosed with COVID-19 2 weeks ago and she finished a course of Zithromax, prednisone and albuterol with no much improvement. Patient denied any fever or chills. No nausea or vomiting. No chest pain. Patient stated that it hurt when she started coughing. MD Complaint: shortness of breath, cough -: week(s) (2) Consistency: constant Context: recent URI - Related Data Home Medications Medication Instructions Recorded Confirmed Last Taken Apixaban [Eliquis] 5 mg PO DAILY 12/18/19 05/10/20 Unknown medroxyPROGESTERone ACETATE 10 mg PO DAILY 12/18/19 05/10/20 Unknown [Provera] OXcarbazepine 1,350 mg PO DAILY 05/10/20 05/10/20 Unknown Previous Rx's Medication Instructions Recorded Last Taken Type traMADoL [Ultram 50 MG tab] 50 mg PO Q6HR PRN #12 tablet 12/23/19 Unknown Rx Ibuprofen [Motrin 800 MG tab] 800 mg PO Q8HR PRN #20 tablet 01/30/20 Unknown Rx medroxyPROGESTERone ACETATE 10 mg PO QDAY #10 tablet 01/31/20 Unknown Rx [Provera] traMADoL [Ultram 50 MG tab] 50 mg PO Q6HR PRN #14 tablet 03/24/20 Unknown Rx Butalb/Acetamin/Caff 50-325-40 1 - 2 tab PO Q8HR PRN #10 tablet 05/10/20 Unknown Rx [Fioricet 50-325-40] OXcarbazepine [Trileptal] 600 mg PO BID #30 tablet 05/10/20 Unknown Rx levETIRAcetam [Keppra TAB] 1,500 mg PO BID #90 05/10/20 Unknown Rx Ondansetron [Zofran Odt] 4 mg PO Q8HR PRN #12 tab.rapdis 05/30/20 Unknown Rx cephALEXin [Keflex] 500 mg PO Q8HR #21 cap 05/30/20 Unknown Rx Allergies Allergy/AdvReac Type Severity Reaction Status Date / Time No Known Allergies Allergy Verified 01/30/20 19:26 ED Review of Systems ROS: Stated complaint: POSS COVID 2WKS AGO,COUGH, THROAT FEELS RAW Other details as noted in HPI Comment: All other systems reviewed and negative Constitutional: denies: chills, fever Respiratory: cough, shortness of breath, SOB with exertion, SOB at rest. denies: wheezing Cardiovascular: denies: chest pain, palpitations Gastrointestinal: denies: abdominal pain, nausea, vomiting Musculoskeletal: denies: back pain Neurological: denies: headache, weakness, numbness, paresthesias, confusion ED Past Medical Hx - Past Medical History Previous Medical History?: Yes Hx Deep Vein Thrombosis: Yes Hx Seizures: Yes Additional medical history: fibroids, PE, endometriosis. anemia - Surgical History Past Surgical History?: Yes Additional Surgical History: fibroids, blood transfusions - Social History Smoking Status: Never Smoker Substance Use Type: None - Medications Home Medications: Home Medications Medication Instructions Recorded Confirmed Last Taken Type Apixaban [Eliquis] 5 mg PO DAILY 12/18/19 05/10/20 Unknown History medroxyPROGESTERone ACETATE 10 mg PO DAILY 12/18/19 05/10/20 Unknown History [Provera] traMADoL [Ultram 50 MG tab] 50 mg PO Q6HR PRN #12 tablet 12/23/19 05/10/20 Unknown Rx Ibuprofen [Motrin 800 MG tab] 800 mg PO Q8HR PRN #20 tablet 01/30/20 05/10/20 Unknown Rx medroxyPROGESTERone ACETATE 10 mg PO QDAY #10 tablet 01/31/20 05/10/20 Unknown Rx [Provera] traMADoL [Ultram 50 MG tab] 50 mg PO Q6HR PRN #14 tablet 03/24/20 05/10/20 Unknown Rx Butalb/Acetamin/Caff 50-325-40 1 - 2 tab PO Q8HR PRN #10 tablet 05/10/20 Unknown Rx [Fioricet 50-325-40] OXcarbazepine 1,350 mg PO DAILY 05/10/20 05/10/20 Unknown History OXcarbazepine [Trileptal] 600 mg PO BID #30 tablet 05/10/20 Unknown Rx levETIRAcetam [Keppra TAB] 1,500 mg PO BID #90 05/10/20 Unknown Rx Ondansetron [Zofran Odt] 4 mg PO Q8HR PRN #12 tab.rapdis 05/30/20 Unknown Rx cephALEXin [Keflex] 500 mg PO Q8HR #21 cap 05/30/20 Unknown Rx ED Physical Exam - General Limitations: No Limitations General appearance: alert, in no apparent distress - Head Head exam: Present: atraumatic, normocephalic, normal inspection - Eye Eye exam: Present: normal appearance, PERRL - ENT ENT exam: Present: normal exam, normal orophraynx, mucous membranes moist - Neck Neck exam: Present: normal inspection, full ROM. Absent: tenderness, meningismus - Respiratory Respiratory exam: Present: rales. Absent: respiratory distress, wheezes, rhonchi, stridor, accessory muscle use, decreased breath sounds, prolonged expiratory - Cardiovascular Cardiovascular Exam: Present: regular rate, normal rhythm, normal heart sounds - GI/Abdominal GI/Abdominal exam: Present: soft, normal bowel sounds. Absent: distended, tenderness, guarding, rebound, rigid, organomegaly, mass, bruit, pulsatile mass, hernia - Extremities Exam Extremities exam: Present: normal inspection, full ROM, normal capillary refill. Absent: tenderness - Back Exam Back exam: Present: normal inspection, full ROM. Absent: CVA tenderness (R), CVA tenderness (L) - Neurological Exam Neurological exam: Present: alert, oriented X3, CN II-XII intact, normal gait, reflexes normal. Absent: motor sensory deficit - Psychiatric Psychiatric exam: Present: normal mood - Skin Skin exam: Present: warm, intact, normal color ED Course Vital Signs 04/30/21 12:18 Temperature 97.7 F Pulse Rate 84 Respiratory 18 Rate Blood Pressure 113/65 O2 Sat by Pulse 95 Oximetry ED Medical Decision Making - Lab Data Result diagrams: 04/30/21 14:12 04/30/21 14:12 - Radiology Data Radiology results: report reviewed - Medical Decision Making Patient is a 36 years old female, morbidly obese, history of seizure and history of pulmonary embolism after surgery. Patient presented to the ER complaining of shortness of breath for the last 2 weeks getting worse recently. Patient stated that she was diagnosed with COVID-19 2 weeks ago and she finished a course of Zithromax, prednisone and albuterol with no much improvement. Patient denied any fever or chills. No nausea or vomiting. No chest pain. Patient stated that it hurt when she started coughing. Chest x-ray showed bilateral infiltrate consistent with pneumonia. Upon walking patient oxygen saturation dropped from 96 to 88%. Patient received Zithromax, Rocephin and Decadron. COVID-19 test has been ordered. I discussed the patient with Dr. Rogers, he agreed to admit the patient to medical service for further management. Critical Care Time: Yes Critical care time in (mins) excluding proc time.: 30 Critical care attestation.: If time is entered above; I have spent that time in minutes in the direct care of this critically ill patient, excluding procedure time. ED Disposition Clinical Impression: Acute respiratory failure with hypoxia, Pneumonia due to COVID-19 virus Disposition: 09 ADMITTED INPATIENT Is pt being admited?: Yes Condition: Stable Instructions: Bacterial Pneumonia (ED) Referrals: PRIMARY CARE, [Primary Care Provider] - 3-5 Days
[2021-04-30 16:33] LABS: INR 0.98 (0.87-1.13)
[2021-04-30 16:34] LABS: Partial Thromboplastin Time 32.8 Sec. (24.2-36.6)
[2021-04-30] MEDS ORDERED: AZITHROMYCIN/NS 500 MG/250 ML 500 MG/250 ML BAG IV ONE (16:40)
[2021-04-30] MEDS ORDERED: dexAMETHasone 20 MG/5 ML VIAL IV ONE (16:40)
[2021-04-30] MEDS ORDERED: cefTRIAXone/NS 1 GM/50 ML 1 GM/50 ML BAG IV ONE (16:40)
--- NOTE | 2021-04-30 16:41 | History and Physical Report ---
History of Present Illness Chief complaint: I cannot breathe History of present illness: 36 YO Female with Obesity Hypoventilation Syndrome, Anemia of Chronic Disease, MO, Uterine Fibroids, Endometriosis, Seizure Disorder, PE currently on therapeutic anticoagulation, Migraine Headache, Coronavirus Infection diagnosed 2 weeks ago presents to ED for evaluation. Patient reports "my breathing is getting worse". Patient states that she has experienced shortness of breath, decreased exercise tolerance, fatigue, malaise, body aches, decreased appetite, and productive cough over the past 2 weeks with persistent and worsening symptoms over the same timeframe. Patient was treated as an outpatient with oral antibiotic therapy and steroid therapy without improvement in symptoms. Patient symptoms have worsened with treatment. Patient transported to [facility] via private vehicle for further care and evaluation of the aforementioned symptoms. The patient was seen and evaluated in the emergency department. All lab and imaging studies reviewed. The patient was found to have a pulse oximetry of 86% with exertion which is consistent with acute hypoxemic respiratory failure. Chest x-ray revealed bilateral pneumonia. Patient mated to medical floor and initiated on pneumonia protocol as well as coronavirus protocol. Patient denies fever, chills, chest pain, palpitations, skin rash, recent ill contact. No prior admission for review. All medication listed at time of admission has been reconciled. Past History Past Medical History: anemia, migraines, pulmonary embolism, seizures Past Surgical History: Other (Uterine fibroid) Social history: single Family history: diabetes, hypertension Medications and Allergies Allergies Allergy/AdvReac Type Severity Reaction Status Date / Time No Known Allergies Allergy Verified 01/30/20 19:26 Home Medications Medication Instructions Recorded Confirmed Last Taken Type Apixaban [Eliquis] 5 mg PO DAILY 12/18/19 05/10/20 Unknown History medroxyPROGESTERone ACETATE 10 mg PO DAILY 12/18/19 05/10/20 Unknown History [Provera] traMADoL [Ultram 50 MG tab] 50 mg PO Q6HR PRN #12 tablet 12/23/19 05/10/20 Unknown Rx Ibuprofen [Motrin 800 MG tab] 800 mg PO Q8HR PRN #20 tablet 01/30/20 05/10/20 Unknown Rx medroxyPROGESTERone ACETATE 10 mg PO QDAY #10 tablet 01/31/20 05/10/20 Unknown Rx [Provera] traMADoL [Ultram 50 MG tab] 50 mg PO Q6HR PRN #14 tablet 03/24/20 05/10/20 Unknown Rx Butalb/Acetamin/Caff 50325-40 1 - 2 tab PO Q8HR PRN #10 tablet 05/10/20 Unknown Rx [Fioricet 50-325-40] OXcarbazepine 1,350 mg PO DAILY 05/10/20 05/10/20 Unknown History OXcarbazepine [Trileptal] 600 mg PO BID #30 tablet 05/10/20 Unknown Rx levETIRAcetam [Keppra TAB] 1,500 mg PO BID #90 05/10/20 Unknown Rx Ondansetron [Zofran Odt] 4 mg PO Q8HR PRN #12 tab.rapdis 05/30/20 Unknown Rx cephALEXin [Keflex] 500 mg PO Q8HR #21 cap 05/30/20 Unknown Rx Active Meds: Active Medications Azithromycin (Zithromax/Ns) 500 mg in 250 mls @ 250 mls/hr IV ONCE ONE; Protocol Stop: 04/30/21 17:39 Ceftriaxone Sodium (Rocephin/Ns 1 Gm/50 Ml) 1 gm in 50 mls @ 100 mls/hr IV ONCE ONE; Protocol Stop: 04/30/21 17:09 Review of Systems Constitutional: fatigue, weakness, lethargy Ears, nose, mouth and throat: no ear pain, no tinnitis, no decreased hearing, no nose pain, no nasal congestion Breasts: no change in shape, no swelling, no mass Cardiovascular: no chest pain, no orthopnea, no palpitations, no rapid/irregular heart beat Respiratory: cough, cough with sputum, shortness of breath, dyspnea on exertion Gastrointestinal: no abdominal pain, no nausea, no vomiting, no diarrhea, no constipation, no change in bowel habits Genitourinary Female: no pelvic pain, no flank pain, no dysuria, no urinary frequency, no urgency Rectal: no pain, no incontinence, no bleeding Musculoskeletal: no neck stiffness, no neck pain, no shooting arm pain, no low back pain, no shooting leg pain Integumentary: no rash, no pruritis, no redness, no sores, no wounds, no glynn dice Neurological: no head injury, no paralysis, no weakness, no numbness, no tingling, no syncope Psychiatric: no anxiety, no sleep disturbances, no hypersomnia, no change in appetite, no change in libido Endocrine: no cold intolerance, no polyphagia, no excessive thirst, no polyuria, no nocturia Hematologic/Lymphatic: no easy bruising, no easy bleeding, no lymphadenopathy Allergic/Immunologic: no wheezing, no persistent infections Exam - Constitutional Vitals: Temp Pulse Resp BP Pulse Ox 97.7 F 84 18 113/65 95 04/30/21 12:18 04/30/21 12:18 04/30/21 12:18 04/30/21 12:18 04/30/21 12:18 General appearance: Present: mild distress, obese - EENT Eyes: Present: PERRL ENT: hearing intact, clear oral mucosa - Neck Neck: Present: supple, normal ROM - Respiratory Respiratory effort: labored, accessory muscle use Respiratory: bilateral: diminished, rhonchi - Cardiovascular Heart Sounds: Present: S1 & S2. Absent: rub, click - Extremities Extremities: pulses symmetrical, No edema Peripheral Pulses: within normal limits - Abdominal General gastrointestinal: Present: soft, non-tender, non-distended, normal bowel sounds Female genitourinary: Present: normal - Integumentary Integumentary: Present: clear, warm, dry - Musculoskeletal Musculoskeletal: generalized weakness - Psychiatric Psychiatric: appropriate mood/affect, intact judgment & insight - Neurologic Neurologic: CNII-XII intact, moves all extremities Results - Labs CBC & Chem 7: 04/30/21 14:12 04/30/21 14:12 Labs: Abnormal lab results 04/30/21 04/30/21 04/30/21 Range/Units 14:12 14:12 15:46 Lymph # (Auto) 1.0 L (1.2-5.4) K/mm3 Seg Neutrophils % 77.0 H (40.0-70.0) % D-Dimer 398.85 H (0-234) ng/mlDDU Sodium 133 L (137-145) mmol/L Chloride 96.0 L (98-107) mmol/L Creatinine 0.5 L (0.6-1.2) mg/dL Alkaline Phosphatase 142 H (35-129) units/L Albumin 3.6 L (3.9-5) g/dL Assessment and Plan - Patient Problems (1) Acute hypoxemic respiratory failure Current Visit: Yes Status: Acute Plan to address problem: Chest x-ray, supplemental oxygen, pulse oximetry, nebulizer therapy, noninvasive positive pressure ventilation as clinically indicated. We will monitor patient pulse oximetry and if patient is unable to maintain pulse oximetry on supplemental oxygen will initiate high flow supplemental oxygen therapy. (2) Pneumonia Current Visit: Yes Status: Acute Plan to address problem: Pneumonia protocol: Chest x-ray, CBC, CMP, supplemental oxygen, pulse oximetry, nebulizer therapy, blood culture. (3) Coronavirus infection Current Visit: Yes Status: Acute Plan to address problem: Coronavirus protocol: IV antibiotic therapy, IV steroid therapy, supplemental oxygen, pulse oximetry, nebulizer therapy, vitamin C therapy, vitamin D therapy, zinc therapy, prone positioning while in bed, continue therapeutic a nticoagulation. (4) Obesity hypoventilation syndrome Current Visit: Yes Status: Acute Plan to address problem: Balanced diet, increase physical activity at discharge, outpatient pulmonary follow-up for sleep study. Outpatient bariatric surgery follow-up. (5) Seizure disorder Current Visit: Yes Status: Acute Plan to address problem: Continue antiepileptic therapy, seizure precautions, supportive care. No seizure activity at this time. (6) Fibromyalgia Current Visit: Yes Status: Acute Plan to address problem: Pain control, supportive care, (7) Anemia of chronic disease Current Visit: Yes Status: Acute Plan to address problem: CBC, supportive care, repeat CBC in a.m. (8) DVT prophylaxis Current Visit: Yes Status: Acute Plan to address problem: SCD to bilateral lower extremities while in bed, continue therapeutic anticoagulation
[2021-04-30] MEDS ORDERED: oxyCODONE /ACETAMINOPHEN 5-325MG TAB PO PRN (16:56)
[2021-04-30] MEDS ORDERED: ONDANSETRON 4 MG ODT TAB PO PRN (17:00)
[2021-04-30] MEDS ORDERED: ALBUTEROL 2.5 MG/3 ML NEBU IH PRN (17:00)
[2021-04-30] MEDS ORDERED: ONDANSETRON 4 MG/2 ML INJ IV PRN (17:00)
[2021-04-30] MEDS ORDERED: guaiFENesin/CODEINE 100-10MG ORAL LIQD 5 ML PO ONE (17:00)
[2021-04-30] MEDS ORDERED: ACETAMINOPHEN 325 MG TAB PO PRN (17:00)
[2021-04-30] MEDS ORDERED: HYDROmorphone 1 MG/1 ML INJ IV PRN (17:00)
[2021-04-30] MEDS ORDERED: ZINC SULFATE 220 MG CAP PO SCH (22:00)
[2021-04-30] MEDS ORDERED: APIXABAN 2.5 MG TAB PO SCH (22:00)
[2021-04-30] MEDS ORDERED: NON-FORMULARY EACH (Levetiracetam [Keppra Tab] 1,000 MG Tablet) PO SCH (22:00)
[2021-04-30] MEDS ORDERED: levETIRAcetam 500 MG TAB PO SCH (22:00)
[2021-04-30] MEDS ORDERED: ASCORBIC ACID 500 MG TAB PO SCH (22:00)
[2021-04-30] MEDS ORDERED: OXcarbazepine 300 MG TAB PO SCH (22:00)
[2021-04-30] MEDS ORDERED: NON-FORMULARY EACH (Oxcarbazepine [Trileptal] 600 MG Tablet) PO SCH (22:00)
[2021-04-30] MEDS: methylPREDNISolone Sod Succinate 40 MG/1 ML INJ IV SCH (23:29)
[2021-05-01] MEDS ORDERED: cefTRIAXone/NS 2 GM/100 ML 2 GM/100 ML BAG IV SCH (05:00)
[2021-05-01] MEDS: methylPREDNISolone Sod Succinate 40 MG/1 ML INJ IV SCH (07:04)
[2021-05-01 07:49] LABS: Basophils % (Auto) 0.3 % (0.0-1.8); Hematocrit 39.3 % (30.3-42.9); Hemoglobin 13.4 gm/dl (10.1-14.3); Lymphocytes # (Auto) 0.8 K/mm3 (1.2-5.4); Lymphocytes % (Auto) 19.8 % (13.4-35.0); Mean Corpuscular HGB Conc 34 % (30-34); Mean Corpuscular Volume 86 fl (79-97); Monocytes # (Auto) 0.3 K/mm3 (0.0-0.8); Monocytes % (Auto) 7.5 % (0.0-7.3); Platelet Count 280 K/mm3 (140-440); Red Blood Count 4.57 M/mm3 (3.65-5.03); Red Cell Distribution Width 14.6 % (13.2-15.2)
[2021-05-01 08:18] LABS: Blood Urea Nitrogen 6 mg/dL (7-17); Calcium 9.3 mg/dL (8.4-10.2); Hemolysis Index 3
[2021-05-01 08:28] LABS: BUN/Creatinine Ratio 12
--- NOTE | 2021-05-01 09:23 | Discharge Summary ---
Providers - Providers Date of Admission: 04/30/21 16:43 Attending physician: BRITTANIE CALDERÓN MD Primary care physician: SYSTEMATIC THEOLOGY PROFESSOR Hospitalization Reason for admission: shortness of breath Condition: Stable Hospital course: 36 YO Female with Obesity Hypoventilation Syndrome, Anemia of Chronic Disease, MO, Uterine Fibroids, Endometriosis, Seizure Disorder, PE currently on therapeutic anticoagulation, Migraine Headache, Coronavirus Infection diagnosed 2 weeks ago presents to ED for evaluation. Patient reports "my breathing is getting worse". Patient states that she has experienced shortness of breath, decreased exercise tolerance, fatigue, malaise, body aches, decreased appetite, and productive cough over the past 2 weeks with persistent and worsening symptoms over the same timeframe. Patient was treated as an outpatient with oral antibiotic therapy and steroid therapy without improvement in symptoms. Patient symptoms have worsened with treatment. Patient transported to [facility] via private vehicle for further care and evaluation of the aforementioned symptoms. The patient was seen and evaluated in the emergency department. All lab and imaging studies reviewed. The patient was found to have a pulse oximetry of 86% with exertion which is consistent with acute hypoxemic respiratory failure. Chest x-ray revealed bilateral pneumonia. Patient mated to medical floor and initiated on pneumonia protocol as well as coronavirus protocol. Patient denies fever, chills, chest pain, palpitations, skin rash, recent ill contact. No prior admission for review. All medication listed at time of admission has been reconciled. patent 2 weeks out since diagnosis, today she is resting comfortable and with ambulation no new distress. was treated with 5 days of steroids currently on Eliquis at home but daily, increased to twice daily. advised to monitor for bleeding monitor oxygen saturation at home with Pulse oximeter- pt verbalized understanding and return to hospital if saturation less than 90 % continue recommended precautions get the vaccine following discussion with your doctor. Weight loss discussed in detail (1) Acute hypoxemic respiratory failure (2) Pneumonia (3) Coronavirus infection (4) Obesity hypoventilation syndrome (5) Seizure disorder (6) Fibromyalgia (7) Anemia of chronic disease Disposition: HOME / SELF CARE / HOMELESS Final Discharge Diagnosis (Prints w/discharge instructions): COVID PNEUMONIA Time spent for discharge: 35 mins Core Measure Documentation - Palliative Care Palliative Care/ Comfort Measures: Not Applicable - Core Measures Any of the following diagnoses?: none Exam - Physical Exam Narrative exam: General appearance: Present: No distress obese - EENT Eyes: Present: PERRL ENT: hearing intact, clear oral mucosa - Neck Neck: Present: supple, normal ROM - Respiratory Respiratory effort: labored, accessory muscle use Respiratory: bilateral: diminished, rhonchi - Cardiovascular Heart Sounds: Present: S1 & S2. Absent: rub, click - Extremities Extremities: pulses symmetrical, No edema Peripheral Pulses: within normal limits - Abdominal General gastrointestinal: Present: soft, non-tender, non-distended, normal bowel sounds Female genitourinary: Present: normal - Integumentary Integumentary: Present: clear, warm, dry - Musculoskeletal Musculoskeletal: generalized weakness - Psychiatric Psychiatric: appropriate mood/affect, intact judgment & insight - Neurologic Neurologic: CNII-XII intact, moves all extremities - Constitutional Vitals: Temp Pulse Resp BP Pulse Ox 97.7 F 84 18 113/65 95 04/30/21 12:18 04/30/21 12:18 04/30/21 12:18 04/30/21 12:18 04/30/21 12:18 Plan Activity: advance as tolerated, fall precautions Diet: low fat Special Instructions: other (Monitor Pulse oximeter at home. Return to hospital if less than 90 %) Follow up with: PRIMARY CARE, [Primary Care Provider] - 3-5 Days EH FINNEY MD [Staff Physician] - 14 Days Prescriptions: dexAMETHasone [Dexamethasone] 8 mg PO DAILY #20 tablet Apixaban [Eliquis] 5 mg PO Q12HR #60 tablet Hydrocodone Bit/Homatrop Me-Br [Hycodan 5 mg-1.5 mg/5 ml Soln] 10 ml PO Q6HR PRN #100 ml PRN Reason: Cough traMADoL [Ultram 50 MG tab] 50 mg PO Q6HR PRN #12 tablet PRN Reason: Pain Ascorbic Acid [Vitamin C] 500 mg PO BID #60 tablet Cholecalciferol Vit D3 [Vitamin D3 1,000 UNIT TAB] 1,000 unit PO QDAY #30 tablet Zinc Sulfate 220 mg PO BID #60 capsule
[2021-05-01] MEDS ORDERED: CHOLECALCIFEROL (VIT D3) 1000 UNIT (25 mcg) TAB PO SCH (10:00)
[2021-05-01] MEDS ORDERED: NON-FORMULARY EACH (Apixaban 5 MG Tablet) PO SCH (10:00)
[2021-05-01] MEDS ORDERED: OXcarbazepine 300 MG TAB PO SCH (10:00)
[2021-05-01] MEDS ORDERED: OXCARBAZEPINE PO SCH (10:00)
[2021-05-01] MEDS ORDERED: APIXABAN 5 MG TAB PO SCH ×2 (10:00)
[2021-05-01] MEDS ORDERED: AZITHROMYCIN/NS 500 MG/250 ML 500 MG/250 ML BAG IV SCH (16:00)
== END 2021-05-01 10:34 | disposition home or self-care (01) ==
LOC: ED 10:52 → 3A 16:43 → INTOOBSV 16:43
PROVIDERS: ADMIT Internal Medicine; ATTEND Internal Medicine
DX: U07.1 COVID-19 (principal); J96.01 Acute respiratory failure with hypoxia; J18.9 Pneumonia, unspecified organism; E66.2 Morbid (severe) obesity with alveolar hypoventilation; G40.909 Epilepsy, unspecified, not intractable, without status epilepticus; M79.7 Fibromyalgia; D64.9 Anemia, unspecified; G43.909 Migraine, unspecified, not intractable, without status migrainosus; Z68.42 Body mass index [BMI] 45.0-49.9, adult; Z71.3 Dietary counseling and surveillance; Z86.711 Personal history of pulmonary embolism
CPT/HCPCS: 36415; 71046; 80048; 80053; 83880; 84484; 84702; 85025; 85379; 85610; 85730; 96365; 96366; 96368; 96375; 96376; 99291; G0378; J0456; J0696; J1100; J2920